=== PATIENT | female | born 1980 | race Caucasian/White ===

== ENCOUNTER → 2016-05-24 | Outpatient (CLI) | payer OTHER ==
[~2016-05-24] MED LIST: AMPHETAMINE SAL30 MG PO; FLEXERIL-DPS10 MG PO; HYZAAR 50-12.51 TAB PO; NEURONTIN DPS100 MG PO; PRILOSEC40 MG PO; PROZAC DPS20 MG PO; TYSABRI300 MG/15 IV; ZITHROMAX TRI-500 MG PO; ZITHROMAX200 MG/51 IV; ZOFRAN4 MG PO; [UNRECOGNIZED DRUG - OTHER] PO
== END | disposition home or self-care (01) ==
LOC: RAD.S 16:32
DX: G35 Multiple sclerosis (principal); R51 Headache; M79.602 Pain in left arm